=== PATIENT | female | born 1995 | race Caucasian/White ===

== ENCOUNTER 2020-06-07 12:51 | Emergency (ER) | payer MEDICAID ==
[~2020-06-07] VITALS: Ht 170.2 cm; Wt 81.8 kg
[2020-06-07] MEDS ORDERED: dexamethasone sod phosphate 10mg/ml inj PO STA (14:18)
== END 2020-06-07 15:39 | disposition home or self-care (01) ==
LOC: ER 12:52
DX: U07.1 COVID-19 (principal); R06.02 Shortness of breath
CPT/HCPCS: 99283; J1100

== ENCOUNTER 2021-06-03 18:35 | Emergency (ER) | payer MEDICAID ==
[~2021-06-03] VITALS: Ht 172.7 cm; Wt 93.0 kg
[2021-06-03 19:20] VITALS: BP 129/77
[2021-06-03] MEDS ORDERED: AMOX-580 PO (20:45)
[2021-06-03] MEDS ORDERED: amox tr/potassium clavulanate 875/125mg TAB PO ONE (20:45)
== END 2021-06-03 21:04 | disposition home or self-care (01) ==
LOC: ER 18:35
DX: U07.1 COVID-19 (principal)
CPT/HCPCS: 99283

== ENCOUNTER 2023-11-06 04:52 | Emergency (ER) | payer MEDICAID ==
[~2023-11-06] VITALS: Ht 172.7 cm; Wt 109.1 kg
[2023-11-06] MEDS ORDERED: PENI500T2 PO (06:37)
[2023-11-06] MEDS ORDERED: IBUP-1984 PO (06:37)
[2023-11-06] MEDS ORDERED: OXYC-658 PO (06:37)
[2023-11-06 07:05] VITALS: BP 130/87; PULSE 84; RESP 18; TEMP 98.7; O2SAT 98
== END 2023-11-06 07:07 | disposition home or self-care (01) ==
LOC: ER 04:53
DX: K04.7 Periapical abscess without sinus (principal); K08.89 Other specified disorders of teeth and supporting structures; Z79.1 Long term (current) use of non-steroidal anti-inflammatories (NSAID); Z79.2 Long term (current) use of antibiotics
CPT/HCPCS: 99283